=== PATIENT | female | born 1935 ===

== ENCOUNTER 2020-09-16 10:30 | Inpatient (IN) | payer OTHER ==
[~2020-09-16] VITALS: Ht 160 cm; Wt 60.8 kg
[2020-09-16] MEDS ORDERED: LOSARTAN-HCTZ1 EAC2 PO (14:04)
[2020-09-16] MEDS ORDERED: CRESTOR10 MG PO (14:04)
[2020-09-16] MEDS ORDERED: TRIMETHOPRIM100 MG PO (14:05)
[2020-10-06] MEDS ORDERED: LOSARTAN POTAS100 MG (08:04)
[2020-10-06] MEDS ORDERED: HYDROCHLOROTH12.5 MG (08:04)
[2020-10-12] MEDS ORDERED: INTESTINEX680 M1 PO (09:09)
== END 2020-10-12 10:13 | disposition home or self-care (01) | DRG 330 ==
LOC: O/R 10-06 05:45 → SURH 10-06 07:00 → SURG 10-06 11:23
PROVIDERS: ADMIT Surgery; ATTEND Surgery
PROC: 0DTP4ZZ Resection of Rectum, Percutaneous Endoscopic Approach (ICD-10-PCS; 2020-10-06)
PROC: 0DJD8ZZ Inspection of Lower Intestinal Tract, Via Natural or Artificial Opening Endoscopic (ICD-10-PCS; 2020-10-06)
PROC: 0DQN4ZZ Repair Sigmoid Colon, Percutaneous Endoscopic Approach (ICD-10-PCS; 2020-10-06)
PROC: 0DBN4ZZ Excision of Sigmoid Colon, Percutaneous Endoscopic Approach (ICD-10-PCS; principal; 2020-10-06 07:00)
DX: K57.20 Diverticulitis of large intestine with perforation and abscess without bleeding (principal); N32.1 Vesicointestinal fistula; I13.10 Hypertensive heart and chronic kidney disease without heart failure, with stage 1 through stage 4 chronic kidney disease, or unspecified chronic kidney disease; N18.31 Chronic kidney disease, stage 3a

== ENCOUNTER 2020-09-20 11:48 | Day surgery (SDC) | payer OTHER ==
[~2020-09-20 11:48] MED LIST: CRESTOR10 MG PO; LOSARTAN-HCTZ1 EAC2 PO; TRIMETHOPRIM100 MG PO
== END 2020-09-20 15:30 | disposition home or self-care (01) ==
LOC: AMB-ENDOS 11:48
PROVIDERS: ATTEND Surgery
DX: C18.2 Malignant neoplasm of ascending colon (principal); D12.0 Benign neoplasm of cecum; Z20.822 Contact with and (suspected) exposure to COVID-19

== ENCOUNTER 2021-10-03 22:18 | Emergency (ER) | payer OTHER ==
[~2021-10-03] VITALS: Ht 160 cm; Wt 53.5 kg
[~2021-10-03 22:18] MED LIST changes: +HYDROCHLOROTH12.5 MG; +INTESTINEX680 M1 PO; +LOSARTAN POTAS100 MG
[2021-10-04] MEDS ORDERED: NORFLEX100MG PO (05:27)
[2021-10-04] MEDS ORDERED: DICLOFENAC POTA50 MG PO (05:27)
== END 2021-10-04 05:37 | disposition home or self-care (01) ==
LOC: ER 22:18
DX: S00.93XA Contusion of unspecified part of head, initial encounter (principal); M54.2 Cervicalgia; M54.50 Low back pain, unspecified; I10 Essential (primary) hypertension; E78.5 Hyperlipidemia, unspecified; W18.30XA Fall on same level, unspecified, initial encounter; W22.8XXA Striking against or struck by other objects, initial encounter; Y93.9 Activity, unspecified; Y92.015 Private garage of single-family (private) house as the place of occurrence of the external cause

== ENCOUNTER 2021-10-09 22:25 | Emergency (ER) | payer OTHER ==
[~2021-10-09] VITALS: Ht 165.1 cm; Wt 61.2 kg
[~2021-10-09 22:25] MED LIST changes: +DICLOFENAC POTA50 MG PO; +NORFLEX100MG PO
== END 2021-10-09 23:28 | disposition home or self-care (01) ==
LOC: ER 22:25
DX: S32.059A Unspecified fracture of fifth lumbar vertebra, initial encounter for closed fracture (principal)

== ENCOUNTER 2022-07-17 06:15 | Day surgery (SDC) | payer OTHER | END 2022-07-17 10:00 | disposition home or self-care (01) | LOC: AMB-ENDOS 06:15 | PROVIDERS: ATTEND Surgery | DX: D12.2 Benign neoplasm of ascending colon (principal); K57.30 Diverticulosis of large intestine without perforation or abscess without bleeding; Z20.822 Contact with and (suspected) exposure to COVID-19 ==